=== PATIENT | female | born 1950 | race Caucasian/White ===

== ENCOUNTER → 2019-11-08 | Outpatient (CLI) | payer MEDICARE ==
--- NOTE | 2019-11-08 10:03 | RAD ---
CT CHEST WO CONTRAST Indication: Pulmonary nodule Technique: Noncontrast CT imaging was performed of the chest, multiplanar reconstruction images submitted. One or more of the following individualized dose reduction techniques were utilized for this examination: 1. Automated exposure control 2. Adjustment of the mA and/or kV according to patient size 3. Use of iterative reconstruction technique. Comparison: None available Findings: There is small left lower lobe nodule about 0.3 cm image 220 series 2. There is 0.5 cm left lower lobe nodule image 212 series 2. There is some linear appearing density of the right lower lobe laterally probably component of fibrotic change or atelectasis. There is no lobar consolidation, pleural or pericardial fluid, or pneumothorax. Thoracic aortic caliber is within normal limits. No significantly enlarged nodes are identified of the chest, some subcentimeter bilateral axillary and mediastinal nodes present. Major airways are patent. IMPRESSION: 1. There are small pulmonary nodules. If increased risk factors for neoplasm, optional 12 month follow-up could be performed as per revised Fleischner guidelines. If low risk factors for neoplasm, no additional follow-up is needed. Electronically signed by: Galdino Melendez MD (11/08/2019 10:01 AM) [id number]
--- NOTE | 2019-11-22 09:18 | RAD ---
BILATERAL SCREENING MAMMOGRAM, 3-D History: Routine screening. Comparison: 08/19/2018, 08/17/2017, 06/02/2016. Technique: MLO and CC digital tomosynthesis (3D) images obtained. Radiologist reviewed these images on dedicated workstation. Findings: Breast Tissue Density D :The breasts are extremely dense, which lowers the sensitivity of mammography. There are no dominant masses, suspicious microcalcifications, or architectural distortion. IMPRESSION: No mammographic evidence of malignancy. Recommend routine screening. BI-RADS category 1: Negative. The images were reviewed with computer-aided detection. Patient information is entered into reminder system with a target due date for the next screening mammogram. Mammography is the most sensitive method for finding small breast cancers, but it does not detect them all and is not a substitute for careful clinical examination. A negative mammogram does not negate a clinically suspicious finding and should not result in delay in biopsying a clinically suspicious abnormality. "Our facility is accredited by the [employer] Mammography [employer]." Electronically signed by: Shamar Gaines MD (11/22/2019 9:15 AM) [id number] [id number]
== END | disposition home or self-care (01) ==
LOC: CT 09:26
PROVIDERS: ATTEND Specialist
DX: Z12.31 Encounter for screening mammogram for malignant neoplasm of breast (principal); R91.8 Other nonspecific abnormal finding of lung field
CPT/HCPCS: 71250; 77063; 77067

== ENCOUNTER → 2020-12-17 | Outpatient (CLI) | payer MEDICARE ==
--- NOTE | 2020-12-17 10:50 | RAD ---
EXAM: CT CHEST WITHOUT CONTRAST (LDCT LUNG CANCER SCREENING). HISTORY: Pulmonary nodules. Lung cancer screening. TECHNIQUE: CT of the chest was performed without intravenous contrast using a low-dose lung screening protocol. Findings analysis is based on ACR Lung-RADS v1.1. *One or more of the following individual ized dose reduction techniques were utilized for this examination: 1. Automated exposure control. 2. Adjustment of the mA and/or kV according to patient size. 3. Use of iterative reconstruction technique. COMPARISON: 11/08/2019. FINDINGS: The heart is normal in size. The aorta is normal in caliber. No pathologically enlarged lym ph node is seen. There is no infiltrate or pleural effusion. There is no pneumothorax. There is bilat eral basilar atelectasis or scarring. There is a stable 3 mm nodule within the lateral left lung base . There is a stable 5 mm nodule along the inferior lateral left pleural fissure due to a suspected fi ssural lymph node. There is no acute finding involving the upper abdomen. There is no acute or suspic ious osseous finding. There is a mild chronic L1 compression fracture. IMPRESSION: 1. Small pulmonary nodules along the lateral left lung base and inferior lateral left pleural fissure , the larger of which measures 5 mm and may be a fissural lymph node. Lung RADS category 2: Follow-up in one year is recommended. 2. No acute thoracic finding. Electronically signed by: Agnelica Zuniga MD (12/17/2020 10:48 AM) [id number]
--- NOTE | 2020-12-17 10:53 | RAD ---
EXAM: DUAL ENERGY X-RAY ABSORPTIOMETRY (DEXA). HISTORY: Postmenopausal screening. FINDINGS: The lowest measured T-score is -1.2 in the right hip, based on a bone mineral density of 0. 801 g/cm^2. Refer to the worksheets for full detail. No comparison examinations are available. IMPRESSION: 1. Low bone mass. Bone mineral density yields a T-score between -1.0 and -2.5. Fracture risk is incre ased. 2. FRAX report: Not calculated. METHODOLOGY: Dual energy x-ray absorptiometry was performed to measure bone mineral density. The foll owing analysis is based on the 2019 Official Positions of the International Society for Clinical Dens itometry: Measurements of the hips and the average of L1-L4 are preferred. When the spine and/or hip cannot be feasibly measured or interpreted, or in the setting of hyperparathyroidism, distal radial bone minera l density may be measured. The lumbar spine T-score is based on the average bone mineral density of L1-L4. In the setting of art ifact or anatomic abnormality, some lumbar levels may be excluded, and the remaining levels used for calculation. A single lumbar level is not used for diagnosis, and if only a single level is available for assessment, another anatomic site will be used to assign a diagnosis. The hip T-score is based on the bone mineral density measurement of the femoral neck or total proxima l femur of either side, whichever is lowest. Bilateral mean values are not used for diagnosis. The forearm T-score is derived from 33% of the distal radius of the nondominant forearm. Electronically signed by: Angelica Zuniga MD (12/17/2020 10:50 AM) [id number]
--- NOTE | 2020-12-17 11:55 | RAD ---
EXAM: Bilateral digital screening mammogram with tomosynthesis. HISTORY: 70-year-old female presents for screening mammography. TECHNIQUE: Full-field digital craniocaudal and mediolateral oblique 2D and 3D tomosynthesis images of both breasts are obtained for evaluation. Computer aided detection was applied. COMPARISON: 11/08/2019 BREAST PARENCHYMAL DENSITY: Level D - Extremely dense. FINDINGS: There is no new suspicious mass, microcalcification or region of architectural distortion. IMPRESSION: BI-RADS Category 2: Benign finding(s). RECOMMENDATION: Annual mammography is recommended. If your mammogram demonstrates that you have dense breast tissue, which could hide abnormalities, and if you have other risk factors for breast cancer that have been identified, you might benefit from s upplemental screening tests that may be suggested by your ordering physician. Dense breast tissue, i n and of itself, is a relatively common condition. This information is not provided to cause undue c oncern, but rather to raise your awareness and to promote discussion with your physician regarding th e presence of other risk factors, in addition to dense breast tissue. A report of your mammography re sults will be sent to you and your physician. You should contact your physician if you have any ques tions or concerns regarding this report. Mammography is a sensitive method for finding small breast cancers, but it does not detect them all a nd is not a substitute for careful clinical examination. A negative mammogram does not negate a clin ically suspicious finding and should not result in delay in biopsying a clinically suspicious abnorma lity. PQRS compliance statement - Patient information was entered into a reminder system with a target due date for the next mammogram. "Our facility is accredited by the [employer] Mammography [employer]." Electronically signed by: Angelica Zuniga MD (12/17/2020 11:53 AM) [id number]
== END ==
LOC: RAD 10:07
PROVIDERS: ATTEND Specialist
DX: Z12.31 Encounter for screening mammogram for malignant neoplasm of breast (principal); Z12.2 Encounter for screening for malignant neoplasm of respiratory organs; Z78.0 Asymptomatic menopausal state; Z00.00 Encounter for general adult medical examination without abnormal findings; M48.56XA Collapsed vertebra, not elsewhere classified, lumbar region, initial encounter for fracture; R91.8 Other nonspecific abnormal finding of lung field; Z87.891 Personal history of nicotine dependence
CPT/HCPCS: 71271; 77063; 77067; 77080